=== PATIENT | female | born 1935 | race Caucasian/White ===

== ENCOUNTER 2018-01-16 10:02 | Observation (INO) | payer MEDICARE, BC ==
[2018-01-16] MEDS ORDERED: NORMAL SALINE 1000 ML 1,000 ML IV ONE (10:35)
[2018-01-16 11:08] LABS: ABSOLUTE LYMPHOCYTES (AUTO) 0.5 10^3/uL (0.5-4.7); ABSOLUTE MONOCYTES (AUTO) 0.2 10^3/uL (0.1-1.4); ABSOLUTE NEUT (AUTO) 3.7 10^3/uL (1.7-8.2); BASOPHILS % (AUTO) 0.2 % (0-2); HEMATOCRIT 44.4 % (36.0-47.0); HEMOGLOBIN 14.6 g/dL (12.0-15.5); LYMPHOCYTES % (AUTO) 11.7 % (13-45); MEAN CORPUSCULAR HEMOGLOBIN 27.6 pg (27.0-33.4); MEAN CORPUSCULAR HGB CONC 32.8 g/dL (32.0-36.0); MEAN CORPUSCULAR VOLUME 84 fl (80-97); MONOCYTES % (AUTO) 4.5 % (3-13); PLATELET COUNT 220 10^3/uL (150-450); RED BLOOD COUNT 5.29 10^6/uL (3.72-5.28); RED CELL DISTRIBUTION WIDTH 16.7 % (11.5-14.0); SEGMENTED NEUTROPHILS % (AUTO) 83.6 % (42-78); TOTAL CELLS COUNTED % (AUTO) 100 %; WHITE BLOOD COUNT 4.5 10^3/uL (4.0-10.5)
[2018-01-16] MEDS ORDERED: DILTIAZEM HCL/D5W 125 MG/125 ML RTUINJ IV PRN (11:09)
[2018-01-16] MEDS ORDERED: DILTIAZEM HCL INJ 25 MG/5 ML VIAL IV ONE ×2 (11:09→12:00)
[2018-01-16 11:27] LABS: INTERNATIONAL RATION (INR) 1.18; PROTHROMBIN TIME 15.6 SEC (11.4-15.4)
[2018-01-16 11:28] LABS: APPEARANCE,URINE CLEAR; BILIRUBIN,URINE NEGATIVE (NEGATIVE); COLOR,URINE YELLOW; GLUCOSE, URINE NEGATIVE (NEGATIVE); KETONES,URINE NEGATIVE (NEGATIVE); LEUKOCYTE ESTERASE,URINE NEGATIVE (NEGATIVE); NITRITE,URINE NEGATIVE (NEGATIVE); PROTEIN,URINE NEGATIVE (NEGATIVE); URINE SPECIFIC GRAVITY 1.011; UROBILINOGEN,URINE NEGATIVE mg/dL (<2.0)
[2018-01-16 11:35] LABS: ALANINE AMINOTRANSFERASE 21 U/L (9-52); ALBUMIN 3.8 g/dL (3.5-5.0); ALKALINE PHOSPHATASE 81 U/L (38-126); ANION GAP 12 (5-19); ASPARTATE AMINO TRANSFERASE 20 U/L (14-36); BILIRUBIN,DIRECT 0.3 mg/dL (0.0-0.4); BILIRUBIN,TOTAL 0.6 mg/dL (0.2-1.3); BLOOD UREA NITROGEN 19 mg/dL (7-20); CALCIUM 9.7 mg/dL (8.4-10.2); CARBON DIOXIDE 33 mmol/L (22-30); CHLORIDE 100 mmol/L (98-107); GLUCOSE 121 mg/dL (75-110); LIPASE 77.1 U/L (23-300); POTASSIUM 3.6 mmol/L (3.6-5.0); SODIUM 144.9 mmol/L (137-145); TOTAL PROTEIN 6.2 g/dL (6.3-8.2)
[2018-01-16 11:38] LABS: CREATINE KINASE < 20 U/L (30-135)
[2018-01-16 11:44] LABS: CREATINE KINASE MB 0.58 ng/mL (<4.55); TROPONIN I < 0.012 ng/mL
--- NOTE | 2018-01-16 11:47 | RADIOLOGY REPORT (SQ) ---
EXAM DESCRIPTION: CHEST 2 VIEWS COMPLETED DATE/TIME: 01/16/2018 11:31 am REASON FOR STUDY: sob COMPARISON: None. EXAM PARAMETERS: NUMBER OF VIEWS: two views TECHNIQUE: Digital Frontal and Lateral radiographic views of the chest acquired. RADIATION DOSE: NA LIMITATIONS: none FINDINGS: LUNGS AND PLEURA: No opacities, masses or pneumothorax. No pleural effusion. MEDIASTINUM AND HILAR STRUCTURES: No masses or contour abnormalities. HEART AND VASCULAR STRUCTURES: Heart normal size. No evidence for failure. BONES: Degenerative changes are identified in the thoracic spine. HARDWARE: None in the chest. OTHER: No other significant finding. IMPRESSION: NO ACUTE RADIOGRAPHIC FINDING IN THE CHEST. TECHNICAL DOCUMENTATION: JOB ID: [id number] [employer]- All Rights Reserved Reading location - IP/workstation name: [email or web address]
--- NOTE | 2018-01-16 12:40 | ER Document Report ---
ED General - General Chief Complaint: Near Syncope Stated Complaint: WEAKNESS Time Seen by Provider: 01/16/18 10:27 - HPI Patient complains to provider of: Weakness near-syncope palpitations Notes: Patient coming in for evaluation of the above-stated symptoms. Patient states ongoing for approximately 1 week. Patient states history of atrial fibrillation for which she is on Xarelto for. However patient is not on any antiarrhythmics. Patient takes quinine for her leg cramps oxycodone for chronic pain and recently finished up a prescription for Cipro for a UTI. Upon my evaluation patient is alert and oriented moving all 4 extremities. Is noted on monitor patient to be in A. fib with heart rate greater than 100. Denies any recent travel denies any fevers chills nausea vomiting chest pain abdominal pain. - Related Data Allergies/Adverse Reactions: No Known Allergies Allergy (Verified 01/16/18 14:14) Past Medical History - Social History Smoking Status: Unknown if Ever Smoked Family History: None, Reviewed & Not Pertinent Review of Systems - Review of Systems Constitutional: Weakness EENT: No symptoms reported Cardiovascular: Palpitations Respiratory: No symptoms reported Gastrointestinal: No symptoms reported Genitourinary: No symptoms reported Female Genitourinary: No symptoms reported Musculoskeletal: No symptoms reported Skin: No symptoms reported Hematologic/Lymphatic: No symptoms reported Neurological/Psychological: No symptoms reported -: Yes All other systems reviewed and negative Physical Exam - Vital signs Vitals: Resp Pulse Ox 9 L 97 01/16/18 10:27 01/16/18 10:27 Interpretation: Normal - General General appearance: Appears well, Alert - HEENT Head: Normocephalic, Atraumatic Eyes: Normal Pupils: PERRL - Respiratory Respiratory status: No respiratory distress Chest status: Nontender Breath sounds: Normal Chest palpation: Normal - Cardiovascular Rhythm: Irregularly irregular, Tachycardia Heart sounds: Normal auscultation Murmur: No - Abdominal Inspection: Normal Distension: No distension Bowel sounds: Normal Tenderness: Nontender Organomegaly: No organomegaly - Back Back: Normal, Nontender - Extremities General upper extremity: Normal inspection, Nontender, Normal color, Normal ROM , Normal temperature General lower extremity: Normal inspection, Nontender, Normal color, Normal ROM , Normal temperature, Normal weight bearing. No: Nitish's sign - Neurological Neuro grossly intact: Yes Cognition: Normal Orientation: AAOx4 [place] Coma Scale Eye Opening: Spontaneous [place] Coma Scale Verbal: Oriented [place] Coma Scale Motor: Obeys Commands [place] Coma Scale Total: 15 Speech: Normal Motor strength normal: LUE, RUE, LLE, RLE Sensory: Normal - Psychological Associated symptoms: Normal affect, Normal mood - Skin Skin Temperature: Warm Skin Moisture: Dry Skin Color: Normal Course - Re-evaluation Re-evalutation: 01/16/18 14:48 The patient initial evaluation patient had a heart rate greater than continue to bounce around in A. fib from a rate of 95-130. Patient denies any chest pain. Patient was monitored for some time however patient's did have increased heart rate up to 170 at that time decision was made to start patient on a Cardizem drip and did consult shot polisher and inspector Dr. Messer who agrees to the patient more likely will need to be admitted for medication adjustment so that she is not on any antiarrhythmics. After some time awaiting I was notified by nursing staff and forcing the hospital is currently limited in his supply of Cardizem. Fortunately or unfortunately by the time the patient had converted back to a normal sinus rhythm and remained in a normal sinus rhythm. EKG does show some ST segment depressions V1 through V3. Troponin returned negative laboratory studies not show any significant pathology did discuss with the hospital staff will admit patient for observation for weakness palpitations was to be paroxysmal A. fib. And hypertension uncontrolled 01/16/18 14:50 - Vital Signs Vital signs: Temp Pulse Resp BP Pulse Ox 97.8 F 110 H 16 161/108 H 96 01/16/18 12:28 01/16/18 12:28 01/16/18 14:36 01/16/18 14:36 01/16/18 14:36 - Laboratory Result Diagrams: 01/16/18 10:40 01/16/18 10:40 Laboratory results interpreted by me: 01/16/18 01/16/18 01/16/18 10:40 10:40 10:40 RBC 5.29 H RDW 16.7 H Seg Neutrophils % 83.6 H Lymphocytes % 11.7 L PT 15.6 H Carbon Dioxide 33 H Est GFR ( Amer) 52 L Est GFR (Non-Af Amer) 43 L Glucose 121 H Creatine Kinase < 20 L NT-Pro-B Natriuret Pep Total Protein 6.2 L 01/16/18 10:40 RBC RDW Seg Neutrophils % Lymphocytes % PT Carbon Dioxide Est GFR ( Amer) Est GFR (Non-Af Amer) Glucose Creatine Kinase NT-Pro-B Natriuret Pep 615 H Total Protein Discharge - Discharge Clinical Impression: Generalized weakness, Paroxysmal A-fib, Accelerated hypertension Condition: Good Disposition: ADMITTED OBSERVATION Admitting Provider: Hospitalist - [facility] Unit Admitted: Telemetry
[2018-01-16] MEDS ORDERED: METOPROLOL TARTRATE PF/INJ 5 MG/5 ML SDV IV PRN ×2 (13:41→17:13)
[2018-01-16] MEDS ORDERED: DILTIAZEM HCL 120 MG CAP.SR.24H PO ONE (13:47)
[2018-01-16] MEDS ORDERED: METOPROLOL TARTRATE PF/INJ 5 MG/5 ML SDV IV ONE (14:22)
[2018-01-16] MEDS ORDERED: ACETAMINOPHEN 325 MG TABLET PO PRN (17:08)
[2018-01-16] MEDS ORDERED: HYDRALAZINE HCL INJ/PF 20 MG/1 ML SDV IV PRN ×2 (17:10→17:17)
[2018-01-16] MEDS ORDERED: SENNOSIDES 8.6 MG PO SCH (17:15)
[2018-01-16] MEDS ORDERED: LABETALOL HCL INJ 20 MG/4 ML DISP.SYRIN IV PRN (17:17)
[2018-01-16] MEDS ORDERED: OXYCODONE-ACETAMINOPHEN 5-325 MG TABLET PO PRN (18:18)
[2018-01-16] MEDS: DRONEDARONE HYDROCHLORIDE 400 MG TABLET PO SCH (18:42)
[2018-01-16] MEDS: OXYCODONE HCL IR 5 MG TABLET PO PRN (18:42)
[2018-01-16] MEDS ORDERED: SENNOSIDES/DOCUSATE 8.6-50 MG 1 EACH TABLET PO ONE (19:00)
--- NOTE | 2018-01-16 20:07 | PDOC H&P ---
History of Present Illness Admission Date/PCP: 01/16/18 13:54 DAVID KOROMA PA-C Patient complains of: WEAKNESS AND SHORTNESS OF BREATH History of Present Illness: CECILIA LEONG is a 82 year old female who presents to the emergency department with approximately 1 week of weakness/dizziness/SOB while ambulating. The patient states she finally came to the ED because her symptoms were increasingly worse 48 hours prior to arrival. The patient states that when she ambulates or exerts herself in anyway, she becomes very short of breath, weak, and dizzy. She does not experience these symptoms when she is at rest. Of note, the patient recently completed a course of Cipro for a UTI. PMH includes AFIB (on xarelto), UTI, chronic back pain, seasonal allergies, constipation. She is a non-smoker and denies ETOH use. Upon arrival to the emergency department, the patient's initial heart rate was 160 and her rhythm was atrial fibrillation. While in the department, her heart rate fluctuated between 100-160, and she would alternate between AFIB and NSR. EKG showed 1st degree heart block, no evidence of acute ischemia or infarction. Troponin<0.012. She was HYPERtensive with a BP 170/100. The patient did not receive medication (due in part to a hospital-wide shortage of cardizem). Cardiology was consulted by the ED MD, decision made to admit the patient to achieve rate control. During my initial encounter with the patient, she is resting comfortably in bed. She denies chest pain, palpitations, SOB, nausea, fever or chills. Her HR is well controlled in the 90s, alternating between AFIB and NSR. The patient states that she has been under a great deal of stress recently because her of 60+ years . She is currently living alone in their house, and she states she "has not been herself" since the passing of her . The patient does have 3 adult children who live locally. Past Medical History Cardiac Medical History: Reports: Atrial Fibrillation Renal/ Medical History: Reports: Other - UTI Musculoskeltal Medical History: Reports: Other - chronic back pain Psychiatric Medical History: Reports: Depression - CURRENTLY NOT TREATED, REPORTS DEPRESSION SINCE Traumatic Medical History: Reports: None Past Surgical History Past Surgical History: Reports: Orthopedic Surgery - BACK SURGERY X 2 - MULTIPLE BOLTS AND PLATES, UNSURE LOCATION Social History Information Source: Patient Lives with: Alone Smoking Status: Never Smoker Frequency of Alcohol Use: None Hx Recreational Drug Use: No Drugs: None Hx Prescription Drug Abuse: No Family History Family History: None, Reviewed & Not Pertinent Parental Family History Reviewed: Yes - F - DM, M - HEART DISEASE, CANCER Children Family History Reviewed: NA Sibling(s) Family History Reviewed.: Yes Medication/Allergy Home Medications: Ciprofloxacin HCl [Cipro 500 mg Tablet] 500 mg PO BID 01/16/18 Fexofenadine HCl [Simi Allergy] 180 mg PO DAILY 01/16/18 Oxycodone HCl 15 mg PO Q6HP PRN 01/16/18 Polyethylene Glycol 3350 [Miralax Powder 17 gm/Packet] 1 packet PO DAILY Quinine Sulfate [Qualaquin 324 mg Capsule] 324 mg PO QPM 01/16/18 Rivaroxaban [Xarelto] 20 mg PO DAILY 01/16/18 Sennosides 8.6 mg PO DAILY 01/16/18 Allergies/Adverse Reactions: No Known Allergies Allergy (Verified 01/16/18 14:14) Review of Systems Constitutional: PRESENT: weakness - WITH EXERCISE Eyes: ABSENT: visual disturbances Cardiovascular: PRESENT: as per HPI Respiratory: PRESENT: dyspnea - WITH EXERCISE Genitourinary: PRESENT: as per HPI, other - RECENTLY TX FOR UTI WITH CIPRO Neurological: PRESENT: focal weakness, restless legs - HISTORY, syncope - NEAR SYNCOPE, weakness - WITH EXERCISE Physical Exam Vital Signs: Temp Pulse Resp BP Pulse Ox 98.4 F 75 16 146/92 H 96 01/16/18 17:57 01/16/18 17:57 01/16/18 17:57 01/16/18 17:57 01/16/18 17:57 Intake & Output 01/15/18 01/16/18 01/17/18 06:59 06:59 06:59 Weight 62.8 kg General appearance: PRESENT: no acute distress, well-developed, well-nourished Head exam: PRESENT: atraumatic Eye exam: PRESENT: conjunctiva pink, PERRLA Mouth exam: PRESENT: moist Neck exam: PRESENT: full ROM Respiratory exam: PRESENT: clear to auscultation mishel, symmetrical, unlabored Pulses: PRESENT: normal radial pulses, +1 pedal pulses bilateral GI/Abdominal exam: PRESENT: normal bowel sounds, soft. ABSENT: tenderness Rectal exam: PRESENT: deferred Extremities exam: PRESENT: full ROM. ABSENT: pedal edema Musculoskeletal exam: PRESENT: ambulatory, full ROM Neurological exam: PRESENT: alert, awake, oriented to person, oriented to place , oriented to time, oriented to situation Psychiatric exam: PRESENT: appropriate affect Results Impressions: Chest X-Ray 01/16/18 10:37 IMPRESSION: NO ACUTE RADIOGRAPHIC FINDING IN THE CHEST. Status: Imported from PACS Assessment & Plan - Diagnosis (1) Paroxysmal A-fib Is this a current diagnosis for this admission?: Yes Plan: Patient has a PMH AFIB on Xarelto. She presented to the ED with uncontrolled AFIB, rate 160s. Her rate/rhythm alternated between controlled vs. uncontrolled , and AFIB vs. NSR. The patient states that her learning and development coordinator told her she didn' t need medication for rate control. No medication given in the ED. Started PO Cardizem and Multaq for rate control As needed IV Lopressor for HR > 110 Continue xarelto Plan for ECHOcardiogram to evaluate for structural or valvular cardiac issues Cardiology consulted, appreciate their recommendations. EKG shows 1st degree heart block, ST depression in septal/anterior leads. No other evidence of acute infarction or ischemia. Repeat EKG in AM (2) Generalized weakness Is this a current diagnosis for this admission?: Yes Plan: Likely related to uncontrolled AFIB/tachyarrythmia Patient endorses weakness while ambulatig x 1 week. She states her symptoms have (recently) been so severe that she thought she was going to "pass put." Orthostatics were checked, and the patient's blood pressure does not drop with position change, but her heart rate does increase significantly. Started on PO Cardizem and Muliaq for rate control As needed IV Lopressor for HR > 110 (3) Hypertension Qualifiers: Hypertension type: essential hypertension Qualified Code(s): I10 - Essential (primary) hypertension Is this a current diagnosis for this admission?: Yes Plan: Patient denies history of HTN, she is not on any anti-hypertensive medication While in the ED, her BP has been 170/100. The patient denies chest pain. Initiate PRN hydralazine and labetolol for HTN Scheduled cardizem for rate control, but may also help regulate blood pressure. Appreciate cardiology recommendations (4) Chronic back pain Qualifiers: Back pain location: low back pain Back pain laterality: midline Sciatica presence: unspecified whether sciatica present Qualified Code(s): M54.5 - Low back pain; G89.29 - Other chronic pain; G89.29 - Other chronic pain Is this a current diagnosis for this admission?: Yes Plan: Patient endorses history of lower back pain. Full ROM in lower extremities. Continue home dose Oxycodone. Tyenol for mild pain. IV fentanyl for severe pain. - Time Time Spent: 30 to 50 Minutes Anticipated discharge: Home Within: within 48 hours - Inpatient Certification Based on my medical assessment, after consideration of the patient's comorbidities, presenting symptoms, or acuity I expect that the services needed warrant INPATIENT care.: Yes I certify that my determination is in accordance with my understanding of Medicare's requirements for reasonable and necessary INPATIENT services [42 CFR 412.3e].: Yes Medical Necessity: Risk of Complication if Not Cared For in Hospital - Plan Summary Plan Summary: Admit under observation status. Cardiology consulted. Anticipate 48 hour admission to gain rate control and better blood pressure control.
[2018-01-16] MEDS ORDERED: ZOLPIDEM TARTRATE 5 MG TABLET PO PRN (22:00)
--- NOTE | 2018-01-16 22:34 | EKG REPORT ---
SEVERITY:- ABNORMAL ECG - SINUS RHYTHM FIRST DEGREE AV BLOCK NONSPECIFIC INTRAVENTRICULAR CONDUCTION DELAY MINIMAL ST DEPRESSION, ANTERIOR LEADS : Confirmed by: Jennifer Messer 16-Jan-2018 22:33:26
--- NOTE | 2018-01-16 22:34 | EKG REPORT ---
SEVERITY:- ABNORMAL ECG - SINUS RHYTHM NONSPECIFIC INTRAVENTRICULAR CONDUCTION DELAY MINIMAL ST DEPRESSION, ANTERIOR LEADS : Confirmed by: Jennifer Messer 16-Jan-2018 22:33:38
[2018-01-17] MEDS: DRONEDARONE HYDROCHLORIDE 400 MG TABLET PO SCH ×2 (05:08→17:10)
[2018-01-17] MEDS: OXYCODONE HCL IR 5 MG TABLET PO PRN ×3 (05:24→21:40)
[2018-01-17 05:58] LABS: HEMATOCRIT 39.6 % (36.0-47.0); HEMOGLOBIN 12.9 g/dL (12.0-15.5); MEAN CORPUSCULAR HEMOGLOBIN 27.6 pg (27.0-33.4); MEAN CORPUSCULAR HGB CONC 32.6 g/dL (32.0-36.0); MEAN CORPUSCULAR VOLUME 85 fl (80-97); PLATELET COUNT 184 10^3/uL (150-450); RED BLOOD COUNT 4.69 10^6/uL (3.72-5.28); RED CELL DISTRIBUTION WIDTH 17.2 % (11.5-14.0); WHITE BLOOD COUNT 4.2 10^3/uL (4.0-10.5)
[2018-01-17 06:14] LABS: ANION GAP 10 (5-19); BLOOD UREA NITROGEN 25 mg/dL (7-20); CALCIUM 9.5 mg/dL (8.4-10.2); CARBON DIOXIDE 31 mmol/L (22-30); CHLORIDE 102 mmol/L (98-107); CHOLESTEROL 157.64 mg/dL (0-200); GLUCOSE 132 mg/dL (75-110); PHOSPHORUS 4.2 mg/dL (2.5-4.5); POTASSIUM 3.9 mmol/L (3.6-5.0); SODIUM 142.7 mmol/L (137-145); TRIGLYCERIDES 129 mg/dL (<150)
[2018-01-17 06:25] LABS: DIRECT LDL 97 mg/dL (<100)
[2018-01-17] MEDS: FENTANYL CITRATE INJ/PF 100 MCG/2 ML AMPUL IV PRN ×2 (07:40→17:10)
--- NOTE | 2018-01-17 09:12 | EKG REPORT ---
SEVERITY:- ABNORMAL ECG - ATRIAL FLUTTER RBBB AND LPFB : Confirmed by: Jennifer Messer 17-Jan-2018 09:11:46
[2018-01-17] MEDS: POLYETHYLENE GLYCOL 3350 POWDER 17 GM/1 PACKET PO SCH (09:20)
[2018-01-17] MEDS: SENNOSIDES/DOCUSATE 8.6-50 MG 1 EACH TABLET PO SCH (09:20)
[2018-01-17] MEDS: ASPIRIN 81 MG TABLET, CHEWABLE PO SCH (09:20)
--- NOTE | 2018-01-17 16:38 | PDOC PROGRESS REPORT ---
Subjective Progress Note for:: 01/17/18 Subjective:: CECILIA LEONG is a 82 year old female who presented to the emergency department with approximately 1 week of weakness, dizziness, shortness of breath. The patient was found to be in rapid A. fib with a heart rate of 160, and HYPERtensive with a BP of 170/100. She has a PMH of AFIB (on Xarelto), UTI , chronic back pain, seasonal allergies, constipation. Patient was started on oral Cardizem and Multitak for rate control. The patient was seen this morning on rounds following her echocardiogram. She is resting in bed on room air. The patient denies chest pain, shortness of breath, chest tightness, fever or chills. Patient states that she has been up to the bathroom a few times and has not experienced the shortness of breath or weakness that originally brought her to the emergency department. The patient does endorse pain to the medial aspect of her L breast. She states she can feel a lump, but during my physical exam, it is difficult to palpate a definable mass. Reason For Visit: PAROXYSMAL AFIB AND HTN Physical Exam Vital Signs: Temp Pulse Resp BP Pulse Ox 98.1 F 45 L 18 120/57 L 100 01/17/18 11:16 01/17/18 11:16 01/17/18 11:16 01/17/18 11:16 01/17/18 11:16 Intake & Output 01/16/18 01/17/18 01/18/18 06:59 06:59 06:59 Intake Total 840 911 Balance 840 911 Weight 63.9 kg General appearance: PRESENT: no acute distress Eye exam: PRESENT: conjunctiva pink, PERRLA Mouth exam: PRESENT: moist Neck exam: PRESENT: full ROM Respiratory exam: PRESENT: clear to auscultation mishel, symmetrical, unlabored Cardiovascular exam: PRESENT: irregular rhythm Pulses: PRESENT: normal radial pulses, normal dorsalis pedis pul Vascular exam: PRESENT: normal capillary refill GI/Abdominal exam: PRESENT: normal bowel sounds, soft. ABSENT: tenderness Rectal exam: PRESENT: deferred Extremities exam: PRESENT: full ROM Musculoskeletal exam: PRESENT: full ROM Neurological exam: PRESENT: alert, awake, oriented to person, oriented to place , oriented to time, oriented to situation Psychiatric exam: PRESENT: appropriate affect Results Laboratory Results: 01/17/18 05:15 04/19/18 05:15 01/17/18 01/17/18 05:15 05:15 WBC 4.2 RBC 4.69 Hgb 12.9 Hct 39.6 MCV 85 MCH 27.6 MCHC 32.6 RDW 17.2 H Plt Count 184 Sodium 142.7 Potassium 3.9 Chloride 102 Carbon Dioxide 31 H Anion Gap 10 BUN 25 H Creatinine 1.28 H Est GFR ( Amer) 48 L Est GFR (Non-Af Amer) 40 L Glucose 132 H Calcium 9.5 Phosphorus 4.2 Triglycerides 129 Cholesterol 157.64 LDL Cholesterol Direct 97 VLDL Cholesterol 26.0 HDL Cholesterol 31 L Impressions: Chest X-Ray 01/16/18 10:37 IMPRESSION: NO ACUTE RADIOGRAPHIC FINDING IN THE CHEST. Status: Imported from PACS Assessment & Plan - Diagnosis (1) Paroxysmal A-fib Is this a current diagnosis for this admission?: Yes Plan: Patient has a PMH AFIB on Xarelto. She presented to the ED with uncontrolled AFIB, rate 160s. Her rate/rhythm alternated between controlled vs. uncontrolled , and AFIB vs. NSR. The patient states that her survey supervisor told her she didn' t need medication for rate control. Continue PO Cardizem and Multaq for rate control As needed IV Lopressor for HR > 110 Continue xarelto ECHOcardiogram completed, results pending Cardiology consulted, appreciate their recommendations. EKG from this morning shows atrial flutter and RBBB no other evidence of acute infarction or ischemia. (2) Generalized weakness Is this a current diagnosis for this admission?: Yes Plan: Likely related to uncontrolled AFIB/tachyarrythmia. Patient endorses weakness while ambulating x 1 week. This morning, the patient states that she does not become weak or dizzy when ambulating to the restroom. Orthostatics were checked yesterday, and the patient's blood pressure does not drop with position change, but her heart rate does increase significantly. Started on PO Cardizem and Muliaq for rate control As needed IV Lopressor for HR > 110 (3) Hypertension Qualifiers: Hypertension type: essential hypertension Qualified Code(s): I10 - Essential (primary) hypertension Is this a current diagnosis for this admission?: Yes Plan: Patient denies history of HTN, she is not on any anti-hypertensive medication While in the ED, her BP has been 170/100. Her blood pressure has been relatively NORMOtensive since admission. Continue PRN hydralazine and labetolol for HTN Scheduled cardizem for rate control, but may also help regulate blood pressure. Appreciate cardiology recommendations (4) Chronic back pain Qualifiers: Back pain location: low back pain Back pain laterality: midline Sciatica presence: unspecified whether sciatica present Qualified Code(s): M54.5 - Low back pain; G89.29 - Other chronic pain; G89.29 - Other chronic pain Is this a current diagnosis for this admission?: Yes Plan: Patient endorses history of lower back pain. Full ROM in lower extremities. Continue home dose Oxycodone. Tyenol for mild pain. IV fentanyl for severe pain. - Time Time Spent with patient: 15-24 minutes Medications reviewed and adjusted accordingly: Yes Anticipated discharge: Home - Inpatient Certification Based on my medical assessment, after consideration of the patient's comorbidities, presenting symptoms, or acuity I expect that the services needed warrant INPATIENT care.: Yes I certify that my determination is in accordance with my understanding of Medicare's requirements for reasonable and necessary INPATIENT services [42 CFR 412.3e].: Yes Medical Necessity: Risk of Complication if Not Cared For in Hospital - Plan Summary Plan Summary: Ultimately, the plan is to discharge the patient with follow-up to her survey supervisor. She will be sent home with marylou Ring and Andreina.
--- NOTE | 2018-01-17 19:53 | XCELERA REPORT ---
[address] [address] Transthoracic Echocardiogram Report Name: CECILIA LEONG Age: 82 yrs Gender: Female : 1935 Patient Status: Inpatient Patient Location: [address] [place] [address] Study Date: 01/17/2018 09:47 AM Height: 64 in Weight: 145 lb BSA: 1.7 m2 Procedure: A complete two-dimensional transthoracic echocardiogram was performed (2D, M-mode, spectral and color flow Doppler). The study was technically adequate with some images being suboptimal in quality. Reason For Study: uncontrolled AFIB, acute onset of SOB and weakness Ordering Physician: YUKO KWOK Performed By: Landy Osborne Interpretation Summary The left ventricular ejection fraction is normal. There is borderline concentric left ventricular hypertrophy. The left ventricle is grossly normal size. Doppler measurements suggest pseudonormalized left ventricular relaxation, which is associated with grade II/IV or mild to moderate diastolic dysfunction Wall motion cannot be accurately commented on, but no definite regional wall motion abnormalities noted. The right ventricular systolic function is normal. The right ventricle is mildly dilated. The right atrium is mildly dilated. The left atrium is mildly dilated. There is no mitral valve stenosis. There is a trace amount of mitral regurgitation There is mild aortic stenosis There is a peak gradient of 15-20 mm of Hg. There is a mild amount of aortic regurgitation There is no tricuspid stenosis. There is a trace or physiologic amount of tricuspid regurgitation Tricuspid regurgitation jet envelope not well defined to measure RV systolic pressure accurately. There is no pericardial effusion. No definite cardiac source of CVA/TIA noted on this particular trans- thoracic study. Consider RENATA if clinically indicated. May consider mobile cardiac telemetry monitoring (MCT) for ruling out transient AFIB. MMode/2D Measurements & Calculations RVDd: 2.6 cm LVIDd: 5.0 cm FS: 21.1 % Ao root diam: IVSd: 0.88 cm LVIDs: 3.9 cm EDV(Teich): 2.7 cm LVPWd: 0.99 cm 118.0 ml Ao root area: ESV(Teich): 67.6 ml 5.7 cm2 EF(Teich): 42.7 %LA dimension: 4.1 cm LVOT diam: 2.0 cm LA A2Cs: LA length: 6.6 cm LA A4Cs: 25.7 cm2 LVOT area: 3.2 cm2 27.4 cm2 LA Vol Index (BP): LA Volume: 52.9 ml/m2 90.3 ml Doppler Measurements & Calculations MV E max apollo: MV P1/2t max apollo: Ao V2 max: AI max apollo: 101.8 cm/sec 102.5 cm/sec 186.8 cm/sec 442.0 cm/sec MV P1/2t: 48.1 msec Ao max PG: AI max P.0 mmHg 78.1 mmHg MVA(P1/2t): 4.6 cm2 AI dec slope: MV dec slope: USAMA(V,D): 1.3 cm2 624.4 cm/sec2 262.1 cm/sec2 AI P1/2t: 494.0 msec LV V1 max PG: PA V2 max: TR max apollo: 2.4 mmHg 67.5 cm/sec 264.7 cm/sec LV V1 max: PA max P.8 mmHg TR max P.8 cm/sec 28.0 mmHg Left Ventricle The left ventricle is grossly normal size. There is borderline concentric left ventricular hypertrophy. The left ventricular ejection fraction is normal. Doppler measurements suggest pseudonormalized left ventricular relaxation, which is associated with grade II/IV or mild to moderate diastolic dysfunction. Wall motion cannot be accurately commented on, but no definite regional wall motion abnormalities noted. Right Ventricle The right ventricle is mildly dilated. There is normal right ventricular wall thickness. The right ventricular systolic function is normal. Atria The right atrium is mildly dilated. The left atrium is mildly dilated. Interarterial septum not well visualized and not well dopplered. Cannot comment on ASD/PFO presence. Mitral Valve There is mild to moderate mitral leaflet calcification. There is no mitral valve stenosis. There is a trace amount of mitral regurgitation. Aortic Valve The aortic valve is not well visualized secondary to technical limitations. There is mild aortic stenosis. There is a peak gradient of 15-20 mm of Hg. There is a mild amount of aortic regurgitation. Tricuspid Valve The tricuspid valve is not well visualized, but is grossly normal. There is no tricuspid stenosis. There is a trace or physiologic amount of tricuspid regurgitation. Tricuspid regurgitation jet envelope not well defined to measure RV systolic pressure accurately. Pulmonic Valve The pulmonic valve is not well visualized. Great Vessels The aortic root is not well visualized. The inferior vena cava appeared normal and decreased > 50% with respiration (RAP 5-10 mmHg). Effusions There is no pericardial effusion. Incidental Findings No definite cardiac source of CVA/TIA noted on this particular trans- thoracic study. Consider RENATA if clinically indicated. May consider mobile cardiac telemetry monitoring (MCT) for ruling out transient AFIB. : YUKO KWOK > Jennifer Messer
--- NOTE | 2018-01-17 20:42 | Progress Note ---
Provider Note Provider Note: Patient was noted to be in atrial fibrillation with bradycardia. Medications been held especially amiodarone and beta-jose. At this point recommend observing patient and see how it goes. Patient will benefit from an event monitoring as an outpatient. Discussed that a need for pacemaker might arise. Patient has known history of coronary artery disease. Recommend aggressive risk factor modification and optimization of CAD therapy.
[2018-01-17] MEDS: RIVAROXABAN 10 MG TABLET PO SCH (21:40)
[2018-01-18] MEDS: DRONEDARONE HYDROCHLORIDE 400 MG TABLET PO SCH (05:55)
[2018-01-18] MEDS: OXYCODONE HCL IR 5 MG TABLET PO PRN ×3 (05:55→18:37)
--- NOTE | 2018-01-18 08:21 | RADIOLOGY REPORT (SQ) ---
EXAM DESCRIPTION: U/S BREAST UNILATERAL LIMITED COMPLETED DATE/TIME: 01/17/2018 5:06 pm REASON FOR STUDY: L medial breast tenderness ?mass vs abscess? COMPARISON: None TECHNIQUE: Static and Realtime grayscale interrogation of focal area(s) of concern in the left breas t(s) acquired. Selected color doppler/spectral images saved to PACS. LIMITATIONS: None. FINDINGS: Masses:No cystic or solid masses identified Architecture:No alteration of normal morphology. No skin thickening. No edema. Other: None. IMPRESSION: No suspicious findings detected by ultrasound. BIRAD: 1 Negative. RECOMMENDATION: RECOMMENDED FOLLOW-UP: Follow-up as clinically indicated. COMMENT: The [employer] ([employer]) has developed recommendations for screening MRI of the breasts in certain patient populations, to be used in conjunction with mammography. Breast MRI s urveillance may be appropriate for women with more than 20% lifetime risk of developing breast cancer as determined by genetic testing, significant family history of the disease, or history of mantle r adiation for Hodgkins Disease. ACR Practice Guidelines 2008. TECHNICAL DOCUMENTATION: FINDING NUMBER: (1) ASSESSMENT: (1) JOB ID: [id number] [email or web address]- All Rights Reserved Reading location - IP/workstation name: [facility] [email or web address]
--- NOTE | 2018-01-18 10:25 | EKG REPORT ---
SEVERITY:- ABNORMAL ECG - ATRIAL FLUTTER/FIBRILLATION NONSPECIFIC INTRAVENTRICULAR CONDUCTION DELAY : Confirmed by: Jennifer Messer 18-Jan-2018 10:24:15
[2018-01-18] MEDS: POLYETHYLENE GLYCOL 3350 POWDER 17 GM/1 PACKET PO SCH (10:37)
[2018-01-18] MEDS: METOPROLOL SUCCINATE 25 MG TAB.SR.24H PO SCH (10:37)
[2018-01-18] MEDS: ASPIRIN 81 MG TABLET, CHEWABLE PO SCH (10:39)
[2018-01-18] MEDS: SENNOSIDES/DOCUSATE 8.6-50 MG 1 EACH TABLET PO SCH (10:39)
--- NOTE | 2018-01-18 16:52 | PDOC PROGRESS REPORT ---
Subjective Progress Note for:: 01/18/18 Subjective:: CECILIA LEONG is a 82 year old female who presented to the emergency department with approximately 1 week of weakness, dizziness, shortness of breath. The patient was found to be in rapid A. fib with a heart rate of 160, and HYPERtensive with a BP of 170/100. She has a PMH of AFIB (on Xarelto), UTI , chronic back pain, seasonal allergies, constipation. Patient was started on oral Cardizem and Multitak for rate control. The patient was seen this morning on rounds. She is resting in bed on room air. The patient has no complaints this morning. She denies chest pain, shortness of breath, chest tightness, fever or chills. The patient experienced multiple episodes of bradycardia yesterday. It was determined that she was not in paroxysmal AFIB, she was in AFIB with bradycardia. Her multaq and amiodarone have been discontinued. Restarted low dose beta jose. Reason For Visit: PAROXYSMAL AFIB AND HTN Physical Exam Vital Signs: Temp Pulse Resp BP Pulse Ox 98.6 F 63 18 129/72 H 98 01/18/18 15:36 01/18/18 15:36 01/18/18 15:36 01/18/18 15:36 01/18/18 15:36 Intake & Output 01/17/18 01/18/18 01/19/18 06:59 06:59 06:59 Intake Total 840 1877 Balance 840 1877 Weight 63.9 kg 64.9 kg General appearance: PRESENT: no acute distress Eye exam: PRESENT: conjunctiva pink, PERRLA Mouth exam: PRESENT: moist Neck exam: PRESENT: full ROM Respiratory exam: PRESENT: clear to auscultation mishel, symmetrical, unlabored Cardiovascular exam: PRESENT: irregular rhythm Pulses: PRESENT: normal radial pulses, normal dorsalis pedis pul Vascular exam: PRESENT: normal capillary refill GI/Abdominal exam: PRESENT: normal bowel sounds, soft. ABSENT: tenderness Rectal exam: PRESENT: deferred Extremities exam: PRESENT: full ROM. ABSENT: pedal edema Musculoskeletal exam: PRESENT: ambulatory, full ROM Neurological exam: PRESENT: alert, awake, oriented to person, oriented to place , oriented to time, oriented to situation Psychiatric exam: PRESENT: appropriate affect Skin exam: PRESENT: normal color, warm Results Laboratory Results: 01/17/18 05:15 01/17/18 05:15 01/17/18 05:15 TSH 1.69 Impressions: Chest X-Ray 01/16/18 10:37 IMPRESSION: NO ACUTE RADIOGRAPHIC FINDING IN THE CHEST. Status: Imported from PACS Assessment & Plan - Diagnosis (1) Atrial fibrillation Qualifiers: Atrial fibrillation type: persistent Qualified Code(s): I48.1 - Persistent atrial fibrillation Is this a current diagnosis for this admission?: Yes Plan: Patient has a PMH AFIB on Xarelto. She presented to the ED with uncontrolled AFIB, rate 160s. Her rate/rhythm alternated between rate controlled AFIB vs. rapid AFIB. The patient states that her engine dynamometer tester told her she didn't need medication for rate control. Following evaluation from cardiology, is no longer believed that the patient was in paroxysmal AFIB. She has been alternating between AFIB and AFLUTTER. Discontinue Multaq and amiodarone, continue low dose Metoprolol, per cardiology recommendations As needed IV Lopressor for HR > 110 Continue xarelto ECHOcardiogram completed, results pending EKG from yesterday morning shows atrial flutter and RBBB no other evidence of acute infarction or ischemia. Plan to observe overnight. Barring any complications, the patient will likely be discharged home tomorrow. (2) Generalized weakness Is this a current diagnosis for this admission?: Yes Plan: Likely related to uncontrolled AFIB/tachyarrythmia. Patient endorses weakness while ambulating x 1 week. This morning, the patient states that she does not become weak or dizzy when ambulating to the restroom. Orthostatics were checked yesterday, and the patient's blood pressure does not drop with position change, but her heart rate does increase significantly. Low dose metoprolol for rate control As needed IV Lopressor for HR > 110 (3) Hypertension Qualifiers: Hypertension type: essential hypertension Qualified Code(s): I10 - Essential (primary) hypertension Is this a current diagnosis for this admission?: Yes Plan: Patient denies history of HTN, she is not on any anti-hypertensive medication While in the ED, her BP has been 170/100. Her blood pressure has been relatively NORMOtensive since admission. Continue PRN hydralazine and labetolol for HTN Scheduled metoprolol for rate control, but may also help regulate blood pressure. Appreciate cardiology recommendations (4) Chronic back pain Qualifiers: Back pain location: low back pain Back pain laterality: midline Sciatica presence: unspecified whether sciatica present Qualified Code(s): M54.5 - Low back pain; G89.29 - Other chronic pain; G89.29 - Other chronic pain Is this a current diagnosis for this admission?: Yes Plan: Patient endorses history of lower back pain. Full ROM in lower extremities. Continue home dose Oxycodone. Tyenol for mild pain. IV fentanyl for severe pain. - Time Time Spent with patient: 15-24 minutes Medications reviewed and adjusted accordingly: Yes Anticipated discharge: Home Within: within 24 hours - Inpatient Certification Based on my medical assessment, after consideration of the patient's comorbidities, presenting symptoms, or acuity I expect that the services needed warrant INPATIENT care.: Yes I certify that my determination is in accordance with my understanding of Medicare's requirements for reasonable and necessary INPATIENT services [42 CFR 412.3e].: Yes Medical Necessity: Risk of Complication if Not Cared For in Hospital - Plan Summary Plan Summary: Ultimately, the plan is to discharge the patient home tomorrow with close follow -up to her engine dynamometer tester.
--- NOTE | 2018-01-18 20:30 | PDOC PROGRESS REPORT ---
Subjective Progress Note for:: 01/18/18 Subjective:: Patient seems to be doing better with gradual improvement. Pt is denying any chest arm or neck discomfort. Patient denying any PND, orthopnea. Patient denied any sustained palpitations, dizziness, syncope, near syncope. Patient denying any fever chills. Patient denying any other significant discomfort. Patient is maintaining atrial flutter fibrillation with controlled heart rate response. Review of systems: Rest review of systems negative. Medications: Medications have been reviewed. Reason For Visit: PAROXYSMAL AFIB AND HTN Physical Exam Vital Signs: Temp Pulse Resp BP Pulse Ox 98.6 F 63 18 129/72 H 98 01/18/18 15:36 01/18/18 15:36 01/18/18 15:36 01/18/18 15:36 01/18/18 15:36 Intake & Output 01/17/18 01/18/18 01/19/18 06:59 06:59 06:59 Intake Total 840 1877 689 Balance 840 1877 689 Weight 63.9 kg 64.9 kg Exam: GENERAL: well-nourished and in no acute distress. Alert and oriented x3 HEAD: Atraumatic, normocephalic. EYES: Pupils equal round and reactive to light, extraocular movements intact, sclera anicteric, conjunctiva are normal. ENT: TMs normal, nares patent, oropharynx clear without exudates. Moist mucous membranes. No oral ulcerations or bleeding gums noted NECK: supple without lymphadenopathy. Trachea is central. No cervical or axillary lymphadenopathy noted. Carotids are 2+, JVD WNL LUNGS: Respiration seems nonlabored, no significant accessory muscle action noted. Breath sounds clear to auscultation bilaterally and equal noted. No wheezes rales or rhonchi noted. No significant dullness noted on percussion. CHEST: Palpation of the chest wall shows no significant chest wall tenderness. HEART: [place] NEON TUBE BENDER, No PSH, 1/6 [place] aortic area, 1/6 miles systolic murmur mitral area, no rubs, no gallops. ABDOMEN: Soft, no significant tenderness appreciated, normoactive bowel sounds. No guarding, no rebound. No rigidity noted . No masses appreciated. EXTREMITIES: Pedal pulses are 1-2+, no calf tenderness noted. No clubbing or cyanosis. negative pedal edema noted NEUROLOGICAL: Focused neurological exam showed no significant neurologic deficit. Normal speech, no focal weakness appreciated. PSYCH: Normal mood, normal affect. Judgment and insight within normal limits. SKIN: No significant ecchymosis, skin is noted to be warm. MUSCULOSKELETAL EXAM: No significant acute joint swelling noted. Results Laboratory Results: 01/17/18 05:15 01/17/18 05:15 01/17/18 05:15 TSH 1.69 EKG Comments: Telemetry strip shows atrial flutter fibrillation with controlled ventricular response. Impressions: Chest X-Ray 01/16/18 10:37 IMPRESSION: NO ACUTE RADIOGRAPHIC FINDING IN THE CHEST. Assessment & Plan - Diagnosis (1) Atrial fibrillation Qualifiers: Atrial fibrillation type: persistent Qualified Code(s): I48.1 - Persistent atrial fibrillation Is this a current diagnosis for this admission?: Yes (2) Generalized weakness Is this a current diagnosis for this admission?: Yes (3) Hypertension Qualifiers: Hypertension type: essential hypertension Qualified Code(s): I10 - Essential (primary) hypertension Is this a current diagnosis for this admission?: Yes (4) Hypertensive urgency Is this a current diagnosis for this admission?: Yes - Notes Notes: Atrial flutter fibrillation: Patient gives a history of this. Currently rate reasonably well controlled. At this point recommend beta-blockers for rate control. Continue with chronic anticoagulation. Generalized weakness: Currently improved. Hypertension: Blood pressure under better control. Hypertensive urgency: Blood pressure was extremely elevated on admission. This has come down. 2D echo reviewed. - Time Time with patient: 15-25 minutes - CODE STATUS was discussed, patient remains full code. Surrogate decision-maker unchanged. Multiple medical problems were addressed. More than 50% of the time spent coordinating care, discussing management plans with involved caregivers. Management plans discussed with involved personnels. Medical decision making was of moderate to high complexity , patient's has multiple comorbidities. Medications reviewed and adjusted accordingly: Yes
--- NOTE | 2018-01-18 20:37 | PDOC CONSULTATION ---
Consultation Consult Date: 01/17/18 Attending physician:: KUN LO Consult reason:: Shortness of breath, atrial fibrillation History of Present Illness Admission Date/PCP: 01/16/18 13:54 DAVID KOROMA PA-C Patient complains of: Shortness of breath and general fatigue History of Present Illness: CECILIA LEONG is a 82 year old female who presents to the emergency department with approximately 1 week of weakness/dizziness/SOB while ambulating. The patient states she finally came to the ED because her symptoms were increasingly worse 48 hours prior to arrival. The patient states that when she ambulates or exerts herself in anyway, she becomes very short of breath, weak, and dizzy. She does not experience these symptoms when she is at rest. Of note, the patient recently completed a course of Cipro for a UTI. PMH includes AFIB (on xarelto), UTI, chronic back pain, seasonal allergies, constipation. She is a non-smoker and denies ETOH use. Upon arrival to the emergency department, the patient's initial heart rate was 160 and her rhythm was atrial fibrillation. While in the department, her heart rate fluctuated between 100-160, and she would alternate between AFIB and NSR. EKG showed 1st degree heart block, no evidence of acute ischemia or infarction. Troponin<0.012. She was HYPERtensive with a BP 170/100. The patient did not receive medication (due in part to a hospital-wide shortage of cardizem). Cardiology was consulted by the ED MD, decision made to admit the patient to achieve rate control. During my initial encounter with the patient, she is resting comfortably in bed. She denies chest pain, palpitations, SOB, nausea, fever or chills. Her HR is well controlled in the 90s, alternating between AFIB and NSR. The patient states that she has been under a great deal of stress recently because her of 60+ years . She is currently living alone in their house, and she states she "has not been herself" since the passing of her . The patient does have 3 adult children who live locally. This history obtained by the hospitalist was reviewed and confirmed. Patient on repeated questioning denied any chest pain. She denied any syncope or near syncope. Patient claims compliance with medication. As noted her blood pressure was noted to be extremely high on presentation. 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 She was told that she does not need any agents for rate control. Past Medical History Cardiac Medical History: Reports: Atrial Fibrillation Renal/ Medical History: Reports: Other - UTI Musculoskeltal Medical History: Reports: Other - chronic back pain Psychiatric Medical History: Reports: Depression - CURRENTLY NOT TREATED, REPORTS DEPRESSION SINCE Traumatic Medical History: Reports: None Past Surgical History Past Surgical History: Reports: Orthopedic Surgery - BACK SURGERY X 2 - MULTIPLE BOLTS AND PLATES, UNSURE LOCATION Social History Information Source: Patient Lives with: Alone Smoking Status: Never Smoker Frequency of Alcohol Use: None Hx Recreational Drug Use: No Drugs: None Hx Prescription Drug Abuse: No - Advance Directive Surrogate healthcare decision maker:: Patient's children at the surrogate decision-maker Family History Family History: Hypertension Parental Family History Reviewed: Yes Children Family History Reviewed: Yes Sibling(s) Family History Reviewed.: Yes Medication/Allergy Home Medications: Ciprofloxacin HCl [Cipro 500 mg Tablet] 500 mg PO BID 01/16/18 Fexofenadine HCl [Simi Allergy] 180 mg PO DAILY 01/16/18 Oxycodone HCl 15 mg PO Q6HP PRN 01/16/18 Polyethylene Glycol 3350 [Miralax Powder 17 gm/Packet] 1 packet PO DAILY Quinine Sulfate [Qualaquin 324 mg Capsule] 324 mg PO QPM 01/16/18 Rivaroxaban [Xarelto] 20 mg PO DAILY 01/16/18 Sennosides 8.6 mg PO DAILY 01/16/18 Allergies/Adverse Reactions: No Known Allergies Allergy (Verified 01/16/18 14:14) Review of Systems Review of Systems: Please see history of present illness and past medical history as wall. Constitutional: No fever or chills reported. Head : No recent chronic headaches, recent head injury. Eyes: No recent eye pain, diplopia, redness, discharge, acute visual changes. Ears: No recent chronic ear pain, acute hearing loss, ear discharge. Oral cavity: No recent ulcerations, bleeding, oral cavity discomfort. Neck: No recent acute neck pain reported. Hematologic: No recent easy bruising or bleeding or hematologic malignancy reported. Lymphatic: No recent lymphatic malignancy, chronic lymphadenopathy reported yet Cardiovascular system review: See history of present illness. Respiratory system review: No recent chronic cough, hemoptysis, blood clots in the lungs reported. Mild Shortness of breath on exertion Gastrointestinal system review: Negative for any recent acute or chronic abdominal pain, hematemesis, melena, recent change in bowel habits. Genitourinary system review: No recent acute or chronic hematuria, flank pain, UTI etc. reported. Skin system review: Negative for any recent abnormal bruising, no rash, no pruritus reported. Neurologic: No prior history of strokes, mini strokes, seizure disorder. Psychologic: No history of major psychosis or major depression reported. Minor depression reported Musculoskeletal: Minor aches and pains reported. No acute joint swelling reported. Endocrine: No recent polyuria, polydipsia, recent heat or cold intolerance. Physical Exam Vital Signs: Temp Pulse Resp BP Pulse Ox 97.9 F 58 L 18 109/83 96 01/17/18 16:20 01/17/18 19:00 01/17/18 16:20 01/17/18 16:20 01/17/18 16:20 Intake & Output 01/16/18 01/17/18 01/18/18 06:59 06:59 06:59 Intake Total 840 911 Balance 840 911 Weight 63.9 kg Exam: GENERAL: well-nourished and in no acute distress. Alert and oriented x3 HEAD: Atraumatic, normocephalic. EYES: Pupils equal round and reactive to light, extraocular movements intact, sclera anicteric, conjunctiva are normal. ENT: TMs normal, nares patent, oropharynx clear without exudates. Moist mucous membranes. No oral ulcerations or bleeding gums noted NECK: supple without lymphadenopathy. Trachea is central. No cervical or axillary lymphadenopathy noted. Carotids are 2+, JVD WNL LUNGS: Respiration seems nonlabored, no significant accessory muscle action noted. Breath sounds clear to auscultation bilaterally and equal noted. No wheezes rales or rhonchi noted. No significant dullness noted on percussion. CHEST: Palpation of the chest wall shows no significant chest wall tenderness. 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 ABDOMEN: Soft, no significant tenderness appreciated, normoactive bowel sounds. No guarding, no rebound. No rigidity noted . No masses appreciated. EXTREMITIES: Pedal pulses are 1-2+, no calf tenderness noted. No clubbing or cyanosis. negative pedal edema noted NEUROLOGICAL: Focused neurological exam showed no significant neurologic deficit. Normal speech, no focal weakness appreciated. PSYCH: Normal mood, normal affect. Judgment and insight within normal limits. SKIN: No significant ecchymosis, skin is noted to be warm. MUSCULOSKELETAL EXAM: No significant acute joint swelling noted. Results Laboratory Results: 01/17/18 05:15 01/17/18 05:15 01/17/18 01/17/18 05:15 05:15 WBC 4.2 RBC 4.69 Hgb 12.9 Hct 39.6 MCV 85 MCH 27.6 MCHC 32.6 RDW 17.2 H Plt Count 184 Sodium 142.7 Potassium 3.9 Chloride 102 Carbon Dioxide 31 H Anion Gap 10 BUN 25 H Creatinine 1.28 H Est GFR ( Amer) 48 L Est GFR (Non-Af Amer) 40 L Glucose 132 H Calcium 9.5 Phosphorus 4.2 Triglycerides 129 Cholesterol 157.64 LDL Cholesterol Direct 97 VLDL Cholesterol 26.0 HDL Cholesterol 31 L EKG Comments: Telemetry strip shows atrial flutter fibrillation with minor nonspecific ST-T wave changes Impressions: Chest X-Ray 01/16/18 10:37 IMPRESSION: NO ACUTE RADIOGRAPHIC FINDING IN THE CHEST. Assessment & Plan - Diagnosis (1) Atrial fibrillation Qualifiers: Atrial fibrillation type: chronic Qualified Code(s): I48.2 - Chronic atrial fibrillation Is this a current diagnosis for this admission?: Yes (2) Dyspnea Qualifiers: Dyspnea type: unspecified Qualified Code(s): R06.00 - Dyspnea, unspecified Is this a current diagnosis for this admission?: Yes (3) Generalized weakness Is this a current diagnosis for this admission?: Yes (4) Hypertension Qualifiers: Hypertension type: essential hypertension Qualified Code(s): I10 - Essential (primary) hypertension Is this a current diagnosis for this admission?: Yes (5) Hypertensive urgency Is this a current diagnosis for this admission?: Yes - Notes Notes: Atrial fibrillation with rapid ventricular response: Recommend rate control. Initially patient was started on multaq as it was felt on EKG that patient is having paroxysmal atrial fibrillation but on closer review of EKG, it seems patient had atrial flutter, fine with fixed conduction leading to a regular rate. Dyspnea: Possibly related to atrial fibrillation with rapid ventricular response and increase in blood pressure. Recommend cycling cardiac enzymes. Hypertension: Initially had hypertensive urgency but now blood pressure coming under better control. Dysthymia: May consider SSRI agent. - Time Time Spent: 30 to 50 Minutes - CODE STATUS was discussed, patient remains full code. Surrogate decision-maker unchanged. Multiple medical problems were addressed. More than 50% of the time spent coordinating care, discussing management plans with involved caregivers. Management plans discussed with involved personnels. Medical decision making was of moderate to high complexity , patient's has multiple comorbidities. Medications reviewed and adjusted accordingly: Yes
[2018-01-18] MEDS: RIVAROXABAN 10 MG TABLET PO SCH (21:19)
[2018-01-18] MEDS: FENTANYL CITRATE INJ/PF 100 MCG/2 ML AMPUL IV PRN (21:20)
[2018-01-19] MEDS: OXYCODONE HCL IR 5 MG TABLET PO PRN ×2 (04:09→10:35)
[2018-01-19 06:19] LABS: ANION GAP 9 (5-19); BLOOD UREA NITROGEN 30 mg/dL (7-20); CALCIUM 9.8 mg/dL (8.4-10.2); CARBON DIOXIDE 36 mmol/L (22-30); CHLORIDE 99 mmol/L (98-107); GLUCOSE 119 mg/dL (75-110); PHOSPHORUS 4.4 mg/dL (2.5-4.5); POTASSIUM 4.9 mmol/L (3.6-5.0)
[2018-01-19 06:29] LABS: FREE T3 3.83 pg/mL (2.77-5.27); FREE T4 (FREE THYROXINE) 1.04 ng/dL (0.78-2.19)
[2018-01-19 08:29] VITALS: BP 146/86
[2018-01-19] MEDS: POLYETHYLENE GLYCOL 3350 POWDER 17 GM/1 PACKET PO SCH (09:30)
[2018-01-19] MEDS: ASPIRIN 81 MG TABLET, CHEWABLE PO SCH (09:30)
[2018-01-19] MEDS: SENNOSIDES/DOCUSATE 8.6-50 MG 1 EACH TABLET PO SCH (09:30)
[2018-01-19] MEDS: METOPROLOL SUCCINATE 25 MG TAB.SR.24H PO SCH (09:30)
--- NOTE | 2018-01-19 18:48 | PDOC PROGRESS REPORT ---
Subjective Progress Note for:: 01/19/18 Subjective:: Patient seems to be doing better. Heart rate noted to be reasonably well controlled. Patient has ambulated in the hallway without any difficulty. Pt is denying any chest arm or neck discomfort. Patient denying any PND, orthopnea. Patient denied any sustained palpitations, dizziness, syncope, near syncope. Patient denying any fever chills. Patient denying any other significant discomfort. Patient is maintaining atrial flutter fibrillation with controlled heart rate response. Review of systems: Rest review of systems negative. Medications: Medications have been reviewed. Reason For Visit: PAROXYSMAL AFIB AND HTN Physical Exam Vital Signs: Temp Pulse Resp BP Pulse Ox 97.7 F 101 H 20 146/86 H 95 01/19/18 08:28 01/19/18 08:28 01/19/18 08:28 01/19/18 08:28 01/19/18 08:28 Intake & Output 01/18/18 01/19/18 01/20/18 06:59 06:59 06:59 Intake Total 1877 1389 Balance 1877 1389 Weight 64.9 kg 64 kg Exam: GENERAL: well-nourished and in no acute distress. Alert and oriented x3 HEAD: Atraumatic, normocephalic. EYES: Pupils equal round and reactive to light, extraocular movements intact, sclera anicteric, conjunctiva are normal. ENT: TMs normal, nares patent, oropharynx clear without exudates. Moist mucous membranes. No oral ulcerations or bleeding gums noted NECK: supple without lymphadenopathy. Trachea is central. No cervical or axillary lymphadenopathy noted. Carotids are 2+, JVD WNL LUNGS: Respiration seems nonlabored, no significant accessory muscle action noted. Breath sounds clear to auscultation bilaterally and equal noted. No wheezes rales or rhonchi noted. No significant dullness noted on percussion. CHEST: Palpation of the chest wall shows no significant chest wall tenderness. 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 ABDOMEN: Soft, no significant tenderness appreciated, normoactive bowel sounds. No guarding, no rebound. No rigidity noted . No masses appreciated. EXTREMITIES: Pedal pulses are 1-2+, no calf tenderness noted. No clubbing or cyanosis. negative pedal edema noted NEUROLOGICAL: Focused neurological exam showed no significant neurologic deficit. Normal speech, no focal weakness appreciated. PSYCH: Normal mood, normal affect. Judgment and insight within normal limits. SKIN: No significant ecchymosis, skin is noted to be warm. MUSCULOSKELETAL EXAM: No significant acute joint swelling noted. Results Laboratory Results: 01/17/18 05:15 01/19/18 04:48 01/19/18 01/19/18 04:48 04:48 Sodium 144.0 Potassium 4.9 Chloride 99 Carbon Dioxide 36 H Anion Gap 9 BUN 30 H Creatinine 1.34 H Est GFR ( Amer) 46 L Est GFR (Non-Af Amer) 38 L Glucose 119 H Calcium 9.8 Phosphorus 4.4 Magnesium 1.7 Free T4 1.04 Free T3 pg/mL 3.83 EKG Comments: Telemetry shows atrial flutter with controlled ventricular response. Impressions: Chest X-Ray 01/16/18 10:37 IMPRESSION: NO ACUTE RADIOGRAPHIC FINDING IN THE CHEST. Assessment & Plan - Diagnosis (1) Atrial fibrillation Qualifiers: Atrial fibrillation type: chronic Qualified Code(s): I48.2 - Chronic atrial fibrillation Is this a current diagnosis for this admission?: Yes (2) Generalized weakness Is this a current diagnosis for this admission?: Yes (3) Hypertension Qualifiers: Hypertension type: essential hypertension Qualified Code(s): I10 - Essential (primary) hypertension Is this a current diagnosis for this admission?: Yes (4) Hypertensive urgency Is this a current diagnosis for this admission?: Yes - Notes Notes: Atrial fibrillation: Patient has atrial flutter and fibrillation. This is felt to be chronic. Patient to continue Xarelto. Rate is well controlled on a small dose of beta-jose. Generalized weakness: This has improved. Hypertension: Blood pressure now under satisfactory control. Hypertensive urgency: Resolved. Exact etiology not clear but could have been related to anxiety, stress or other unknown cause. Cardiac enzymes were noted to be negative. EKG negative for acute ischemic changes. Patient is okayed for discharge. Patient given my card. She can follow-up with me if she wishes. She has difficulty in traveling to [place]. - Time Time with patient: 15-25 minutes Medications reviewed and adjusted accordingly: Yes
--- NOTE | 2018-02-02 13:36 | PDOC DISCHARGE SUMMARY ---
General - Admit/Disc Date/PCP Admission Date/Primary Care Provider: 01/16/18 13:54 DAVID KOROMA PA-C Discharge Date: 01/19/18 - Discharge Diagnosis (1) Atrial fibrillation Is this a current diagnosis for this admission?: Yes Summary: Patient has a PMH AFIB on Xarelto. She presented to the ED with uncontrolled AFIB, rate 160s. Her rate/rhythm alternated between rate controlled AFIB vs. rapid AFIB. The patient states that her jewel stringer told her she didn't need medication for rate control. Following evaluation from cardiology, initially believed to be in paroxysmal AFIB. She was originally started on multaq and amiodarone per cardiology. The patient then experienced multiple episodes of bradycardia. It was determined that she was not in paroxysmal AFIB, she was in AFIB with bradycardia. Alternating between AFIB and AFLUTTER. Her multaq and amiodarone were discontinued. Low dose Metoprolol per cardiology recommendations. Continue xarelto ECHOcardiogram completed, grade II diastolic dysfunction EKG from yesterday morning shows atrial flutter and RBBB no other evidence of acute infarction or ischemia. (2) Generalized weakness Is this a current diagnosis for this admission?: Yes Summary: Likely related to uncontrolled AFIB/tachyarrythmia. Patient endorses weakness while ambulating x 1 week. Low dose metoprolol for rate control (3) Hypertension Is this a current diagnosis for this admission?: Yes Summary: Patient denies history of HTN, she is not on any anti-hypertensive medication While in the ED, her BP has been 170/100. Her blood pressure has been relatively NORMOtensive since admission. Scheduled metoprolol for rate control, but also helped regulate blood pressure. (4) Chronic back pain Is this a current diagnosis for this admission?: Yes Summary: Patient endorses history of lower back pain. Full ROM in lower extremities. Patient able to ambulate without difficulty Home dose Oxycodone. Tyenol for mild pain. - Additional Information Discharge Diet: Cardiac Discharge Activity: Activity As Tolerated Prescriptions: Metoprolol Succinate [Toprol Xl 25 mg Tab.sr] 12.5 mg PO DAILY #30 tab.sr.24h Home Medications: Fexofenadine HCl [Simi Allergy] 180 mg PO DAILY 01/16/18 Oxycodone HCl 15 mg PO Q6HP PRN 01/16/18 Polyethylene Glycol 3350 [Miralax Powder 17 gm/Packet] 1 packet PO DAILY Quinine Sulfate [Qualaquin 324 mg Capsule] 324 mg PO QPM 01/16/18 Rivaroxaban [Xarelto] 20 mg PO DAILY 01/16/18 Sennosides 8.6 mg PO DAILY 01/16/18 Metoprolol Succinate [Toprol Xl 25 mg Tab.sr] 12.5 mg PO DAILY #30 tab.sr.24h History of Present Illness History of Present Illness: CECILIA LEONG is a 82 year old female who presents to the emergency department with approximately 1 week of weakness/dizziness/SOB while ambulating. The patient states she finally came to the ED because her symptoms were increasingly worse 48 hours prior to arrival. The patient states that when she ambulates or exerts herself in anyway, she becomes very short of breath, weak, and dizzy. She does not experience these symptoms when she is at rest. Of note, the patient recently completed a course of Cipro for a UTI. PMH includes AFIB (on xarelto), UTI, chronic back pain, seasonal allergies, constipation. She is a non-smoker and denies ETOH use. Upon arrival to the emergency department, the patient's initial heart rate was 160 and her rhythm was atrial fibrillation. While in the department, her heart rate fluctuated between 100-160, and she would alternate between AFIB and NSR. EKG showed 1st degree heart block, no evidence of acute ischemia or infarction. Troponin<0.012. She was HYPERtensive with a BP 170/100. The patient did not receive medication (due in part to a hospital-wide shortage of cardizem). Cardiology was consulted by the ED MD, decision made to admit the patient to achieve rate control. During my initial encounter with the patient, she is resting comfortably in bed. She denies chest pain, palpitations, SOB, nausea, fever or chills. Her HR is well controlled in the 90s, alternating between AFIB and NSR. The patient states that she has been under a great deal of stress recently because her of 60+ years . She is currently living alone in their house, and she states she "has not been herself" since the passing of her . The patient does have 3 adult children who live locally. Physical Exam Vital Signs: Temp Pulse Resp BP Pulse Ox 97.7 F 101 H 20 146/86 H 95 01/19/18 08:28 01/19/18 08:28 01/19/18 08:28 01/19/18 08:28 01/19/18 08:28 Results Laboratory Results: 01/17/18 05:15 01/19/18 04:48 Impressions: Chest X-Ray 01/16/18 10:37 IMPRESSION: NO ACUTE RADIOGRAPHIC FINDING IN THE CHEST. Qualifiers - * PATIENT BEING DISCHARGED WITH ANY OF THE FOLLOWING DIAGNOSIS: No Plan Discharge Plan: Discharge home with close follow up to cardiology Time Spent: Less than 30 Minutes
== END 2018-01-19 11:15 | disposition home or self-care (01) ==
LOC: ER 10:02 → EH 13:54 → 4N 18:12
PROVIDERS: ADMIT Internal Medicine; ATTEND Internal Medicine
DX: I48.2 Chronic atrial fibrillation (principal); I48.92 Unspecified atrial flutter; R00.1 Bradycardia, unspecified; R53.1 Weakness; I16.0 Hypertensive urgency; I51.89 Other ill-defined heart diseases; I10 Essential (primary) hypertension; G89.29 Other chronic pain; M54.5 Low back pain; R25.2 Cramp and spasm; R06.00 Dyspnea, unspecified; F34.1 Dysthymic disorder; I44.0 Atrioventricular block, first degree; J30.2 Other seasonal allergic rhinitis; K59.00 Constipation, unspecified; N64.4 Mastodynia; I25.10 Atherosclerotic heart disease of native coronary artery without angina pectoris; Z87.440 Personal history of urinary (tract) infections; Z79.02 Long term (current) use of antithrombotics/antiplatelets; Z60.2 Problems related to living alone; Z63.4 Disappearance and death of family member; Z98.890 Other specified postprocedural states; Z82.49 Family history of ischemic heart disease and other diseases of the circulatory system; Z79.899 Other long term (current) drug therapy
CPT/HCPCS: 93005 ×3; 99285; 96361; 96374; 36415 ×3; 84439; 82553; 82550; 83690; 83735; 84100 ×2; 84443; 85025; 85027; 85610; 85730; 80048 ×2; 80053; 81001; 84484; 84481; 80061; 83880; 93306; 71046; 76642; 93010 ×3; G0378 ×5; A9270 ×20; J3490 ×7; J3010 ×2; J7030

== ENCOUNTER 2018-01-21 10:21 | Emergency (ER) | payer MEDICARE, BC ==
[2018-01-21] MEDS ORDERED: ONDANSETRON HCL INJ/PF 4 MG/2 ML SDV IV ONE (11:11)
[2018-01-21] MEDS ORDERED: HYDROMORPHONE HCL INJ/PF 2 MG/ML AMPULE IV ONE (11:11)
--- NOTE | 2018-01-21 11:15 | ER Document Report ---
ED Neck/Back Problem - General Chief Complaint: Back Pain Stated Complaint: BACK PAIN Time Seen by Provider: 01/21/18 10:50 Mode of Arrival: Medic Information source: Patient, Relative - daughters TRAVEL OUTSIDE OF THE [place] IN LAST 30 DAYS: No - HPI Patient complains to provider of: Pain Notes: Patient is here with her daughters at the bedside. Daughter states that the patient has had right flank pain for the last few weeks. It seems to progressively be getting worse. The patient states the pain starts in the right flank radiates down her right lower back and down her right leg. Pain seems to be progressively getting worse. Patient has a history of chronic back pain. She has had a few back surgeries in the past. She takes 15 mg oxycodone 4 times a day. She was also taking fentanyl, but her daughter state that a few months ago her doctor stopped giving her the fentanyl but did not increase her oxycodone. This seems to be the time when her pain is gotten worse. The daughters also state that the patient was recently admitted to the hospital for A. fib, she is currently on Xarelto and metoprolol. She denies any recent falls or injuries. She denies any dysuria or hematuria. Daughters also report that she has a history of chronic urinary tract infections as well. She has had no fevers. No nausea, vomiting, diarrhea. The pain in her back seems to be worse with any sort of movement. The daughters also state that the patient has been extremely generally weak. Patient denies any chest pain or shortness of breath. No bowel or bladder dysfunction. No other complaints at this time. - Related Data Allergies/Adverse Reactions: No Known Allergies Allergy (Verified 01/16/18 14:14) Past Medical History - Social History Smoking Status: Never Smoker Frequency of alcohol use: None Drug Abuse: None Family History: Hypertension Patient has suicidal ideation: No Patient has homicidal ideation: No - Past Medical History Cardiac Medical History: Reports: Hx Atrial Fibrillation Renal/ Medical History: Denies: Hx Peritoneal Dialysis Psychiatric Medical History: Reports: Hx Depression - CURRENTLY NOT TREATED, REPORTS DEPRESSION SINCE Past Surgical History: Reports: Hx Hysterectomy, Hx Orthopedic Surgery - BACK SURGERY X 2 - MULTIPLE BOLTS AND PLATES, UNSURE LOCATION - Immunizations Hx Pneumococcal Vaccination: 10/01/15 Review of Systems - Review of Systems -: Yes All other systems reviewed and negative Physical Exam - Vital signs Vitals: Temp Pulse BP Pulse Ox 97.4 F 87 107/63 93 01/21/18 11:04 01/21/18 11:04 01/21/18 11:04 01/21/18 11:04 - Notes Notes: GENERAL: alert, cooperative, nontoxic, no distress. HEAD: normocephalic, atraumatic EYES: conjunctiva pink without discharge, no external redness or swelling. EARS: no external swelling, no external redness NOSE: atraumatic, no external swelling MOUTH/THROAT: mucous membranes moist and pink, posterior pharynx without erythema, swelling, exudate. No trismus or drooling. NECK: soft, supple, full range of motion, no meningismus. CHEST: no distress, lungs clear and equal throughout. No wheezing, rales, rhonchi. CARDIAC: regular rate and rhythm, no murmur, normal capillary refill, normal pulses. No peripheral edema noted. ABDOMEN: soft, nontender, no pusatile mass. No rebound tenderness or guarding. BACK: Mild right CVA tenderness. Mild tenderness along the right side lumbar paraspinal muscles. No midline tenderness step-offs or crepitus. EXTREMITIES: full range of motion of all extremities. No redness, no swelling. NEURO: alert and oriented A&O x 3, no focal deficits, full range of motion of all extremities. 5 out of 5 flexion and extension of the lower extremities bilaterally. Patellar and Achilles deep tendon reflexes are +2 bilaterally. Normal sensation with no saddle anesthesia. Patient can dorsiflex the great toes bilaterally. PYSCH: appropriate mood, affect. Patient is cooperative. SKIN: pink, warm, dry, no rash. Course - Re-evaluation Re-evalutation: 01/21/18 14:30 Patient continues to be stable at this time. Currently I am awaiting urine results. I have ordered a straight cath to determine if the patient has a urinary tract infection causing her weakness. We will also have the staff ambulate the patient to see how she is doing with ambulation. Determination on her disposition will be made after urine results and ambulation have occurred. 01/21/18 17:12 Patient is nontoxic appearing with stable vitals. She is here with complaints of worsening back pain. She has a history of chronic back pain and was recently taken off of her fentanyl patches. She believes that this is the reason that her pain is getting worse. Her daughters also complains she seems generally weak compared to her normal self. She has had no chest pain or shortness of breath. Her EKG shows no acute ischemic changes, but is different than last EKG which showed A. fib during her last admission. Troponin is unremarkable. No urinary tract infection. Chest x-ray is unremarkable. CT the abdomen and pelvis shows no acute findings. The patient was given a dose of pain medication and states that she is feeling significantly better at this time. She was able to ambulate the hallway without any significant difficulty. At this point the patient states that she would like to go home. She has an appointment with a pain specialist scheduled for tomorrow. I have offered an admission to the patient as well as her family due to her complaints of feeling more weak than normal, but they state that they feel she can go home since she has an appointment scheduled tomorrow with pain management. I did urge them to return the emergency department immediately if they develop worsening pain, fever, difficulty controlling bowels or bladder, chest pain, shortness of breath , or for any further concerns. At this point she has no sign or risk of cauda equina, epidural abscess/bleed, discitis, osteomyelitis, AAA. The patient's emergency department workup and current diagnosis were explained to the patient and or family. Follow-up instructions were provided. Medications if prescribed were discussed. Instructions for when to return to the emergency department including specific worrisome symptoms were discussed with the patient and/or family. - Vital Signs Vital signs: Temp Pulse Resp BP Pulse Ox 97.4 F 87 107/63 93 01/21/18 11:04 01/21/18 11:04 01/21/18 11:04 01/21/18 11:04 - Laboratory Result Diagrams: 01/21/18 11:45 01/21/18 11:45 Laboratory results interpreted by me: 01/21/18 01/21/18 11:45 11:45 RDW 17.4 H Seg Neuts % (Manual) 92 H Band Neutrophils % 2 L Lymphocytes % (Manual) 4 L Monocytes % (Manual) 0 L Abs Lymphs (Manual) 0.4 L Abs Monocytes (Manual) 0.0 L Potassium 5.1 H BUN 33 H Creatinine 1.27 H Est GFR ( Amer) 49 L Est GFR (Non-Af Amer) 40 L Glucose 177 H - Diagnostic Test Radiology reviewed: Image reviewed, Reports reviewed - CT abdomen pelvis shows no acute abnormality. Chest x-ray shows no acute abnormality. - EKG Interpretation by Me EKG shows normal: Sinus rhythm Rate: Normal [place]/QRS: RBBB Heart block present: 1st Degree When compared to previous EKG there are: Changes noted Discharge - Discharge Clinical Impression: Weakness Chronic back pain Qualifiers: Back pain location: low back pain Back pain laterality: unspecified Sciatica presence: unspecified whether sciatica present Qualified Code(s): M54.5 - Low back pain; G89.29 - Other chronic pain; G89.29 - Other chronic pain Condition: Stable Disposition: HOME, SELF-CARE Instructions: Chronic Back Pain ([facility]), Weakness ([facility]) Additional Instructions: Take her normal pain medication as prescribed. Follow-up with your pain specialist as scheduled tomorrow. Please return the emergency department immediately for worsening pain, fever, difficulty controlling her bowels or bladder, chest pain, difficulty breathing, numbness, tingling, weakness on one side your body, persistent vomiting, worsening weakness, or for any further concerns at all. Referrals: DAVID KOROMA PA-C [Primary Care Provider] - Follow up as needed
--- NOTE | 2018-01-21 11:28 | RADIOLOGY REPORT (SQ) ---
EXAM DESCRIPTION: CHEST SINGLE VIEW COMPLETED DATE/TIME: 01/21/2018 11:21 am REASON FOR STUDY: weakness COMPARISON: 01/16/2018. EXAM PARAMETERS: NUMBER OF VIEWS: One view. TECHNIQUE: Single frontal radiographic view of the chest acquired. RADIATION DOSE: NA LIMITATIONS: None. FINDINGS: LUNGS AND PLEURA: No opacities, masses or pneumothorax. No pleural effusion. MEDIASTINUM AND HILAR STRUCTURES: No masses. Contour normal. HEART AND VASCULAR STRUCTURES: Heart upper limits of normal in size. Normal vasculature. BONES: No acute findings. HARDWARE: None in the chest. OTHER: No other significant finding. IMPRESSION: NO ACUTE RADIOGRAPHIC FINDING IN THE CHEST. TECHNICAL DOCUMENTATION: JOB ID: [id number] [email or web address]- All Rights Reserved Reading location - IP/workstation name: [email or web address]
[2018-01-21 12:03] LABS: HEMATOCRIT 43.8 % (36.0-47.0); HEMOGLOBIN 14.5 g/dL (12.0-15.5); MEAN CORPUSCULAR HEMOGLOBIN 27.8 pg (27.0-33.4); MEAN CORPUSCULAR HGB CONC 33.1 g/dL (32.0-36.0); MEAN CORPUSCULAR VOLUME 84 fl (80-97); PLATELET COUNT 228 10^3/uL (150-450); RED BLOOD COUNT 5.21 10^6/uL (3.72-5.28); RED CELL DISTRIBUTION WIDTH 17.4 % (11.5-14.0); WHITE BLOOD COUNT 6.1 10^3/uL (4.0-10.5)
[2018-01-21 12:20] LABS: BLOOD UREA NITROGEN 33 mg/dL (7-20); CALCIUM 9.2 mg/dL (8.4-10.2); CARBON DIOXIDE 30 mmol/L (22-30); CHLORIDE 99 mmol/L (98-107); GLUCOSE 177 mg/dL (75-110); POTASSIUM 5.1 mmol/L (3.6-5.0); SODIUM 141.4 mmol/L (137-145)
--- NOTE | 2018-01-21 12:20 | RADIOLOGY REPORT (SQ) ---
EXAM DESCRIPTION: CT ABD/PELVIS WITH IV ONLY COMPLETED DATE/TIME: 01/21/2018 11:59 am REASON FOR STUDY: right flank pain COMPARISON: None. TECHNIQUE: CT scan of the abdomen and pelvis performed using helical scanning technique with dynamic intravenous contrast injection. No oral contrast. Images reviewed with lung, soft tissue, and bone windows. Reconstructed coronal and sagittal MPR images reviewed. Delayed images for evaluation of the urinary system also acquired. All images stored on PACS. All CT scanners at this facility use dose modulation, iterative reconstruction, and/or weight based d osing when appropriate to reduce radiation dose to as low as reasonably achievable (ALARA). [facility]: Dose Right [facility]: CareDose [facility]: Dose Right [facility]: Teradose 4D [facility]: Tacatì CONTRAST TYPE AND DOSE: contrast/concentration: Isovue 370.00 mg/ml; Total Contrast Delivered: 69.0 ml; Total Saline Delivered: 64.0 ml RENAL FUNCTION: BUN 30 creatinine 1.3 RADIATION DOSE: CT Rad equipment meets quality standard of care and radiation dose reduction techniq ues were employed. CTDIvol: 6.4 - 8.5 mGy. DLP: 827 mGy-cm.. LIMITATIONS: Artifact from lower lumbar fusion. FINDINGS: LOWER CHEST: Cardiomegaly. LIVER: Normal size. No masses. No dilated ducts. SPLEEN: Normal size. No focal lesions. PANCREAS: No masses. No significant calcifications. No adjacent inflammation or peripancreatic fluid collections. Pancreatic duct not dilated. GALLBLADDER: No identified stones by CT criteria. No inflammatory changes to suggest cholecystitis. ADRENAL GLANDS: No significant masses or asymmetry. RIGHT KIDNEY AND URETER: No solid masses. No significant calcifications. No hydronephrosis or hyd roureter. LEFT KIDNEY AND URETER: No solid masses. No significant calcifications. No hydronephrosis or hydr oureter. AORTA AND VESSELS: No aneurysm. RETROPERITONEUM: No retroperitoneal adenopathy, hemorrhage or masses. BOWEL AND PERITONEAL CAVITY: Diverticulosis descending and sigmoid colon. No masses or inflammatory changes. No free fluid or peritoneal masses. APPENDIX: Not visualized. PELVIS: No mass. No free fluid. Normal bladder. ABDOMINAL WALL: No masses. No hernias. BONES: No acute findings. OTHER: No other significant finding. IMPRESSION: No acute abnormality in the abdomen or pelvis. TECHNICAL DOCUMENTATION: JOB ID: [id number] Quality ID # [id number]: Final reports with documentation of one or more dose reduction techniques (e.g., Au tomated exposure control, adjustment of the mA and/or kV according to patient size, use of iterative reconstruction technique) 2010 [employer]- All Rights Reserved Reading location - IP/workstation name: [email or web address]
[2018-01-21 12:21] LABS: ALANINE AMINOTRANSFERASE 17 U/L (9-52); ALBUMIN 3.8 g/dL (3.5-5.0); ALKALINE PHOSPHATASE 63 U/L (38-126); ANION GAP 12 (5-19); ASPARTATE AMINO TRANSFERASE 29 U/L (14-36); BILIRUBIN,DIRECT 0.3 mg/dL (0.0-0.4); BILIRUBIN,TOTAL 0.7 mg/dL (0.2-1.3); LIPASE 58.3 U/L (23-300); TOTAL PROTEIN 6.3 g/dL (6.3-8.2)
[2018-01-21 12:42] LABS: ABSOLUTE LYMPHOCYTES# (MANUAL) 0.4 10^3/uL (0.5-4.7); ABSOLUTE NEUTROPHILS# (MANUAL) 5.7 10^3/uL (1.7-8.2); ANISOCYTOSIS 2+; BAND NEUTROPHILS % (MANUAL) 2 % (3-5); BASOPHILS % (MANUAL) 0 % (0-2); EOSINOPHILS % (MANUAL) 0 % (0-6); HYPOCHROMASIA SLIGHT; LYMPHOCYTES % (MANUAL) 4 % (13-45); MONOCYTES % (MANUAL) 0 % (3-13); OVALOCYTES 2+; POIKILOCYTOSIS 2+; POLYCHROMASIA SLIGHT; SEGMENTED NEUTROPHILS % (MAN) 92 % (42-78); TOTAL CELLS COUNTED 100; TOXIC GRANULATION 2+; TOXIC VACUOLATION PRESENT
[2018-01-21 12:43] LABS: PLATELET COMMENT ADEQUATE
--- NOTE | 2018-01-21 13:21 | EKG REPORT ---
SEVERITY:- ABNORMAL ECG - SINUS RHYTHM FIRST DEGREE AV BLOCK RIGHT BUNDLE BRANCH BLOCK AND LPFB. : Confirmed by: Tad Stroud MD 21-Jan-2018 13:21:01
[2018-01-21 15:26] LABS: APPEARANCE,URINE CLEAR; BILIRUBIN,URINE NEGATIVE (NEGATIVE); COLOR,URINE YELLOW; GLUCOSE, URINE NEGATIVE (NEGATIVE); KETONES,URINE NEGATIVE (NEGATIVE); LEUKOCYTE ESTERASE,URINE NEGATIVE (NEGATIVE); NITRITE,URINE NEGATIVE (NEGATIVE); PROTEIN,URINE NEGATIVE (NEGATIVE); UROBILINOGEN,URINE NEGATIVE mg/dL (<2.0)
[2018-01-21 18:17] VITALS: BP 118/69
== END 2018-01-21 17:40 | disposition home or self-care (01) ==
LOC: ER 10:21
DX: G89.29 Other chronic pain (principal); M54.5 Low back pain; Z79.891 Long term (current) use of opiate analgesic; R53.1 Weakness; R10.9 Unspecified abdominal pain; I45.10 Unspecified right bundle-branch block; I44.0 Atrioventricular block, first degree; I48.91 Unspecified atrial fibrillation; Z79.01 Long term (current) use of anticoagulants; Z98.890 Other specified postprocedural states; Z79.899 Other long term (current) drug therapy; Z87.440 Personal history of urinary (tract) infections
CPT/HCPCS: 93005; 99285; 96374; 96375; 36415; 83690; 85025; 80053; 81001; 84484; 71045; 74177; 93010; J1170; J2405